=== PATIENT | female | born 1960 | race Hispanic/Latino ===

== ENCOUNTER 2018-05-11 05:30 | Day surgery (SDC) | payer OTHER ==
[~2018-05-11] VITALS: Ht 149.9 cm; Wt 84.6 kg
[2018-05-11] VITALS (7 sets, daily range): BP systolic 102–131; BP diastolic 56–86
[2018-05-11] MEDS ORDERED: SODIUM CHLORIDE 0.9% 1000ML 1,000 ML IV ONE (05:53)
[2018-05-11] MEDS ORDERED: METO-408 PO (06:20)
[2018-05-11] MEDS ORDERED: ASPI-555 PO (06:20)
[2018-05-11] MEDS ORDERED: LOSA1TAB37 PO (06:20)
[2018-05-11] MEDS ORDERED: LOVA40TA2 PO (06:20)
[2018-05-11] MEDS ORDERED: METF-446 PO (06:20)
[2018-05-11] MEDS ORDERED: GLYCOPYRROLATE 0.2 MG/ML 5 ML VIAL ONE ×2 (06:57→07:18)
[2018-05-11] MEDS ORDERED: PROPOFOL 10 MG/ML 20ML VIAL IV ONE ×3 (06:57→07:21)
[2018-05-11] MEDS ORDERED: PHENYLEPHRINE HCL 10 MG/ML 1ML VIAL IV ONE (07:16)
[2018-05-11] MEDS ORDERED: IPRATROPIUM/ALBUTEROL SULFATE 3 ML SOLUTION IH ONE (07:36)
[2018-05-11] MEDS ORDERED: IPRATROPIUM/ALBUTEROL SULFATE 3 ML SOLUTION IH SCH (07:45)
--- NOTE | 2018-05-11 07:51 | NUR ---
DC DC INSTRUCTIONS GIVEN TO PT SPOUSE, INSTRUCTED TO F/U WITH DR. HU, PT AWAKE AND ALERT, AFTER DUONEB PATIENT STATES FELT BETTER. PT'S BEEN HAVING COLD COUGH PRIOR TO PROCEDURE. 02 SAT 95-96% ON ROOM AIR
--- NOTE | 2018-05-11 08:10 | NUR ---
DC PT DC HOME VIA WC,NO DISTRESS NOTED. ACCOMPANIED BY SPOUSE
== END 2018-05-11 08:10 | disposition home or self-care (01) ==
LOC: DAH 05:30 → ENDO 05:30
PROVIDERS: ATTEND Internal Medicine
DX: Z12.11 Encounter for screening for malignant neoplasm of colon (principal); K64.0 First degree hemorrhoids; K57.30 Diverticulosis of large intestine without perforation or abscess without bleeding; B96.81 Helicobacter pylori [H. pylori] as the cause of diseases classified elsewhere; K29.50 Unspecified chronic gastritis without bleeding; E66.01 Morbid (severe) obesity due to excess calories; I10 Essential (primary) hypertension; Z88.8 Allergy status to other drugs, medicaments and biological substances; Z68.37 Body mass index [BMI] 37.0-37.9, adult; Z98.890 Other specified postprocedural states; Z90.710 Acquired absence of both cervix and uterus; Z79.899 Other long term (current) drug therapy; E78.5 Hyperlipidemia, unspecified; J45.909 Unspecified asthma, uncomplicated; E11.9 Type 2 diabetes mellitus without complications; I48.91 Unspecified atrial fibrillation; K76.0 Fatty (change of) liver, not elsewhere classified; Z79.84 Long term (current) use of oral hypoglycemic drugs; K44.9 Diaphragmatic hernia without obstruction or gangrene; K22.8 Other specified diseases of esophagus
CPT/HCPCS: 43239; 45385; 82948 ×2; 93005; 94640; A4606; J2370; J2704 ×3; J3490 ×2; J7030

== ENCOUNTER 2019-12-19 09:00 | Inpatient (IN) | payer OTHER ==
[~2019-12-19] VITALS: Ht 152.4 cm; Wt 86.2 kg
[~2019-12-19 09:00] MED LIST: ASPI-556 PO; LOVA40TA2 PO; METO-408 PO
[2019-12-19 10:31] LABS: APPEARANCE,URINE CLEAR (CLEAR); BILIRUBIN,URINE NEGATIVE (NEGATIVE); COLOR,URINE YELLOW (YELLOW); GLUCOSE, URINE (UA) 250 mg/dL (NEGATIVE); KETONES,URINE NEGATIVE (NEGATIVE); LEUKOCYTE ESTERASE ,URINE NEGATIVE (NEGATIVE); NITRATE,URINE NEGATIVE (NEGATIVE); OCCULT BLOOD,URINE TRACE-INTACT (NEGATIVE); PH,URINE 6.5 (5.0-8.0); PROTEIN,URINE NEGATIVE (NEGATIVE); UROBILINOGEN,URINE 0.2 mg/dL (0.2-1.0)
[2019-12-19 10:37] LABS: BACTERIA,URINE Few /HPF (None Seen); RBC,URINE 0-1 /HPF (0-1); SQUAMOUS EPITHELIAL CELL,UR 0-2 /HPF (0-2); WBC,URINE None Seen /HPF (0-1)
[2019-12-19 10:38] LABS: CREATININE 0.7 mg/dL (0.5-1.5); POTASSIUM 4.1 mmol/L (3.5-5.1)
[2019-12-19 10:41] LABS: INR 0.96 (0.85-1.15); PARTIAL THROMBOPLASTIN TIME 25.9 SEC (26.3-35.5); PROTHROMBIN TIME 10.4 SEC (9.6-11.6)
[2019-12-23 11:00] VITALS: BP 135/84
[2019-12-23] MEDS ORDERED: HYDR12.54 PO (11:27)
[2019-12-23] MEDS ORDERED: OZEMPIC SQ (11:27)
[2019-12-23] MEDS ORDERED: LOSA50TA64 PO (11:27)
[2019-12-23] MEDS ORDERED: SITA100T12 PO (11:27)
--- NOTE | 2019-12-23 15:54 | NUR ---
Abnormal labs Called Dr. Murphy to make him aware of abnormal labs. No further orders given
[2019-12-26] VITALS (21 sets, daily range): BP systolic 111–132; BP diastolic 52–82
--- NOTE | 2019-12-26 09:30 | NUR ---
HOLDING A&O.DENIES PAIN.ALL BELONGINGS GIVEN TO SPOUSE IN LOBBY. SIDE RAILS X2.VS STABLE.
[2019-12-26] MEDS ORDERED: SODIUM CHLORIDE 0.9% 1000ML 1,000 ML IV ONE (10:38)
[2019-12-26] MEDS ORDERED: CELECOXIB 200 MG CAP ONE (10:57)
[2019-12-26] MEDS ORDERED: CEFAZOLIN SODIUM 1 GM VIAL ONE ×2 (10:58→11:18)
[2019-12-26] MEDS ORDERED: KETOROLAC TROMETHAMINE 15MG/ML ONE (10:58)
[2019-12-26] MEDS ORDERED: ACETAMINOPHEN EXTRA STRENGTH 500 MG TABLET ONE (10:58)
[2019-12-26] MEDS ORDERED: METOCLOPRAMIDE 10 MG/2 ML VIAL ONE (10:58)
[2019-12-26] MEDS ORDERED: TRANEXAMIC ACID 1000MG/10ML ONE ×3 (10:59→14:53)
[2019-12-26] MEDS ORDERED: PROPOFOL 10 MG/ML 20ML VIAL IV ONE (11:09)
[2019-12-26] MEDS ORDERED: GLYCOPYRROLATE 1 MG/5 ML SYRINGE ONE (11:09)
[2019-12-26] MEDS ORDERED: DEXAMETHASONE SOD PHOSPHATE 10MG/ML 1ML VIAL ONE (11:09)
[2019-12-26] MEDS ORDERED: LIDOCAINE PF 2% 5ML ABBOJECT ONE (11:09)
[2019-12-26] MEDS ORDERED: MIDAZOLAM HCL 1 MG/ML 2ML VIAL ONE (11:09)
[2019-12-26] MEDS ORDERED: SUCCINYLCHOLINE CHLORIDE 20 MG/ML 10 ML VIAL ONE (11:09)
[2019-12-26] MEDS ORDERED: ONDANSETRON HCL 4 MG/2 ML VIAL ONE (11:10)
[2019-12-26] MEDS ORDERED: NEOSTIGMINE 5MG/5ML SYR IV ONE (11:10)
[2019-12-26] MEDS ORDERED: ROCURONIUM 10MG/1ML SYR 10 MG/ML ML ONE (11:10)
[2019-12-26] MEDS ORDERED: FENTANYL CITRATE PF 50 MCG/1 ML 2ML VIAL ONE (11:10)
[2019-12-26] MEDS ORDERED: ROPIVACAINE 0.5% 5MG/ML 30ML IJ ONE (11:43)
[2019-12-26] MEDS ORDERED: DURAMORPH PF1 MG/ML 10ML AMP IV ONE (11:44)
[2019-12-26] MEDS ORDERED: HETASTARCH IN 0.9 % NACL 500 ML IV ONE (12:26)
[2019-12-26] MEDS ORDERED: EPHEDRINE SULFATE 50 MG/ML AMPULE ONE (12:33)
[2019-12-26] MEDS ORDERED: CEFAZOLIN SODIUM 1 GM VIAL IRRIG ONE (12:48)
[2019-12-26] MEDS ORDERED: KETOROLAC TROMETHAMINE 30MG/ML ONE (14:17)
[2019-12-26] MEDS ORDERED: DiphenhydrAMINE HCL 50 MG/ML VIAL IVP PRN (14:45)
[2019-12-26] MEDS ORDERED: CALCIUM CARBONATE 500 MG TABLET PO PRN (14:45)
[2019-12-26] MEDS ORDERED: POTASSIUM CHLORIDE 20 MEQ ERTAB PO PRN (14:45)
[2019-12-26] MEDS ORDERED: TEMAZEPAM 15 MG CAPSULE PO PRN (14:45)
[2019-12-26] MEDS ORDERED: ONDANSETRON HCL 4 MG/2 ML VIAL IVP PRN (14:45)
[2019-12-26] MEDS ORDERED: TRAMADOL HCL 50 MG TABLET PO PRN (14:45)
[2019-12-26] MEDS: ACETAMINOPHEN EXTRA STRENGTH 500 MG TABLET PO SCH ×2 (14:45→19:55)
[2019-12-26] MEDS: SODIUM CHLORIDE 0.9% 1000ML 1,000 ML IV SCH (14:45)
[2019-12-26] MEDS ORDERED: POTASSIUM CHLORIDE 10% ELIXIR 20 MEQ/15 ML UDCUP PO PRN (14:45)
[2019-12-26] MEDS ORDERED: LIDOCAINE HCL-MPF 1% 2ML VIAL IV PRN (14:45)
[2019-12-26] MEDS ORDERED: FERROUS FUMARATE 324 MG TABLET PO PRN (14:45)
[2019-12-26] MEDS ORDERED: OXYCODONE HCL 5 MG TAB PO PRN (14:45)
[2019-12-26] MEDS ORDERED: POTASSIUM CHLORIDE 20MEQ/100ML 100 ML IV PRN (14:45)
--- NOTE | 2019-12-26 15:45 | NUR ---
REPORT RECEIVED FROM TELMA ELDER (PACU). PATIENT S/P RIGHT TKA BY DR. MEADE. GRETCHEN DRESSING DRY AND INTACT. PATIENT STABLE AT THIS TIME.
--- NOTE | 2019-12-26 15:49 | NUR ---
ROMAINE NOTE/IA UNABLE TO MET WITH PATIENT IN ROOM, NEXT OF KIN CALLED, LALIT ESCALANTE. PER SPOUSE, PATIENT LIVES WITH HIM, INDEPENDENT WITH ADLS, HAS ROLLATOR WALKER, AND FEELS SAFE FOR PATIENT TO DC HOME ONCE STABLE. INFORMED SPOUSE OF DR. MEADE ORDERS FOR HOME HEALTH AND DME, STATES HE WANTS PATIENT TO MAKE THAT DECISION. PATIENT CURRENTLY S/P ORTHOPEDIC SURGERY AND IN PACU RECOVERING. IF NOT TOO DROWSY OR CONFUSED, WILL OBTAIN [facility] FOR HH AND DME FROM PATIENT ONCE IN ROOM. Addendum: 12/26/19 at 1552 by RACHAEL SAPP RN CM Amended: Links added.
--- NOTE | 2019-12-26 16:27 | NUR ---
CM NOTE/HH MET WITH PATIENT AND SPOUSE AT BEDSIDE. PER SPOUSE, WANTS HH AND DME DECISION TO COME FROM HER. PATIENT IS VERY DROWSY AND ALERT WITH TOUCH BUT EASILY FALLS BACK TO SLEEP. CM TO FOLLOW UP FOR HH AND DME DECISION.
[2019-12-26] MEDS: INSULIN HUMULIN R 100 UNIT/ML 3ML SQ SCH ×2 (16:30→20:35)
[2019-12-26] MEDS: CEFAZOLIN SODIUM 1 GM VIAL IVP SCH (19:53)
[2019-12-26] MEDS: FAMOTIDINE 20MG TAB 20 MG TAB PO SCH (19:53)
[2019-12-26] MEDS: PREGABALIN 25 MG CAP PO SCH (19:54)
[2019-12-26] MEDS: CELECOXIB 200 MG CAP PO SCH (19:54)
[2019-12-26] MEDS: ASPIRIN 81MG TAB.CHEW PO SCH (19:54)
[2019-12-26] MEDS: OXYCODONE HCL 5 MG TAB PO PRN ×2 (19:55→23:58)
[2019-12-26] MEDS: METOPROLOL SUCCINATE 50 MG TAB.SR.24H PO SCH (21:00)
[2019-12-26] MEDS: ATORVASTATIN CALCIUM 10 MG TABLET PO SCH (21:00)
[2019-12-27 00:08] VITALS: BP 105/57
[2019-12-27] MEDS: SODIUM CHLORIDE 0.9% 1000ML 1,000 ML IV SCH ×2 (00:56→10:45)
--- NOTE | 2019-12-27 01:00 | NUR ---
ACTIVITY PATIENT ASSISTED TO EDGE OF BED TO DANGLE LEGS PER ORDERS. PATIENT TOLERATED WELL AND WAS THEN ASSISTED BACK TO BED.
[2019-12-27] MEDS: OXYCODONE HCL 5 MG TAB PO PRN ×2 (03:19→20:16)
[2019-12-27] MEDS: CEFAZOLIN SODIUM 1 GM VIAL IVP SCH (03:20)
[2019-12-27 04:12] VITALS: BP 100/54
[2019-12-27] MEDS ORDERED: HYDROMORPHONE HCL 2 MG/ML VIAL IVP PRN (04:45)
[2019-12-27] MEDS ORDERED: NALOXONE HCL 0.4 MG/1 ML ML IVP PRN (04:45)
[2019-12-27] MEDS ORDERED: HYDROMORPHONE PCA 10 MG/50 ML 50 ML IV PRN (04:45)
[2019-12-27] MEDS: INSULIN HUMULIN R 100 UNIT/ML 3ML SQ SCH ×4 (05:19→20:22)
[2019-12-27 05:34] LABS: HEMATOCRIT 30.7 % (36-48); MEAN CORPUSCULAR HEMOGLOBIN 29.8 pg (27.0-33.0); MEAN CORPUSCULAR HGB CONC 32.6 g/dL (32.0-36.0); MEAN CORPUSCULAR VOLUME 91.4 fL (79-99); RED BLOOD CELL COUNT(AUTO) 3.36 MIL/uL (4.00-5.50); RED CELL DISTRIBUTION WIDTH 12.8 % (11.0-15.5)
[2019-12-27 05:44] LABS: CREATININE 0.7 mg/dL (0.5-1.5); POTASSIUM 3.7 mmol/L (3.5-5.1)
[2019-12-27] MEDS: ACETAMINOPHEN EXTRA STRENGTH 500 MG TABLET PO SCH ×3 (05:59→22:36)
[2019-12-27 08:08] VITALS: BP 110/59
[2019-12-27] MEDS: FAMOTIDINE 20MG TAB 20 MG TAB PO SCH ×2 (09:30→20:16)
[2019-12-27] MEDS: LOSARTAN 50 MG TABLET PO SCH (09:31)
[2019-12-27] MEDS: PREGABALIN 25 MG CAP PO SCH ×2 (09:34→20:18)
[2019-12-27] MEDS: ASPIRIN 81MG TAB.CHEW PO SCH ×2 (09:35→20:17)
[2019-12-27] MEDS: LINAGLIPTIN 5 MG TABLET PO SCH (09:36)
[2019-12-27] MEDS: METOPROLOL SUCCINATE 50 MG TAB.SR.24H PO SCH ×2 (09:38→20:17)
[2019-12-27] MEDS: POLYETHYLENE GLYCOL 3350 17 GM POWD.PACK PO SCH (09:46)
[2019-12-27] MEDS: CELECOXIB 200 MG CAP PO SCH ×2 (09:46→20:18)
[2019-12-27] MEDS: HYDROCHLOROTHIAZIDE 25 MG TABLET PO SCH (09:46)
--- NOTE | 2019-12-27 11:03 | NUR ---
1030 spoke to Kina with [employer], She stated she will be sending a reach lift truck driver now to deliver equipment.
[2019-12-27 11:55] VITALS: BP 112/59
--- NOTE | 2019-12-27 14:43 | NUR ---
1406 Spoke to Helen, she stated acceptance to [facility]. I notified RumaRN of acceptance,call report to [phone], also notified her of pending equipment delivery from [facility].
--- NOTE | 2019-12-27 16:46 | NUR ---
WALKED 100 FEET WITH PT. TODAY HAS BEEN COMFORTABLE TODAY, MEDICATED X 1 ONLY. GRETCHEN DRESSING INTACT WITH GREEN LIGHT BLINKING
[2019-12-27 16:59] VITALS: BP 125/64
[2019-12-27 20:08] VITALS: BP 101/50
[2019-12-27] MEDS: ATORVASTATIN CALCIUM 10 MG TABLET PO SCH (20:18)
--- NOTE | 2019-12-27 22:08 | NUR ---
PATIENT RECEIVED IN BED, AAOX3, NO ACUTE DISTRESS. POD #1 RIGHT TKA. GRETCHEN DRESSING IS D/I WITH GREEN LIGHT FLASHING. POC DISCUSSED WITH PATIENT. PT VOICED UNDERSTANDING. CALL SALC[facility]O PLACED WITHIN REACH. WILL CONT TO MONITOR CLOSELY.
[2019-12-28 00:08] VITALS: BP 104/50
[2019-12-28 04:08] VITALS: BP 104/55
[2019-12-28] MEDS: INSULIN HUMULIN R 100 UNIT/ML 3ML SQ SCH ×3 (05:31→16:30)
[2019-12-28] MEDS: ACETAMINOPHEN EXTRA STRENGTH 500 MG TABLET PO SCH ×2 (05:52→15:30)
[2019-12-28 07:40] VITALS: BP 120/57
[2019-12-28] MEDS: LOSARTAN 50 MG TABLET PO SCH (09:03)
[2019-12-28] MEDS: POLYETHYLENE GLYCOL 3350 17 GM POWD.PACK PO SCH (09:03)
[2019-12-28] MEDS: ASPIRIN 81MG TAB.CHEW PO SCH (09:04)
[2019-12-28] MEDS: CELECOXIB 200 MG CAP PO SCH (09:04)
[2019-12-28] MEDS: PREGABALIN 25 MG CAP PO SCH (09:05)
[2019-12-28] MEDS: LINAGLIPTIN 5 MG TABLET PO SCH (09:05)
[2019-12-28] MEDS: FAMOTIDINE 20MG TAB 20 MG TAB PO SCH (09:05)
[2019-12-28] MEDS: HYDROCHLOROTHIAZIDE 25 MG TABLET PO SCH (09:05)
[2019-12-28] MEDS: METOPROLOL SUCCINATE 50 MG TAB.SR.24H PO SCH (09:07)
[2019-12-28 11:23] VITALS: BP 118/68
[2019-12-28] MEDS ORDERED: ASPI-1005 PO (16:13)
[2019-12-28] MEDS ORDERED: HYDR-4457 PO ×2 (16:13→16:19)
[2019-12-28 16:26] VITALS: BP 108/45
--- NOTE | 2019-12-28 17:00 | NUR ---
CALLED [facility], NO ANSWER, WILL TRY AGAIN LATER.
--- NOTE | 2019-12-28 18:25 | NUR ---
DISCHARGE PATIENT GIVEN DISCHARGE INSTRUCTIONS AND EDUCATION ON FOLLOW UP APPOINTMENT, NEW RX (ASA,NORCO), WBAT, GRETCHEN DRESSING CARE AND REMOVAL DATE 01/02/20, AND S/S TO REPORT TO MD. PATIENT VERBALIZED UNDERSTANDING OF ALL EDUCATION GIVEN VIA TEACH BACK. GRETCHEN DRESSING CHANGED USING STERILE TECHNIQUE. NO ABNORMAL S/S NOTED. NEW GRETCHEN DRESSING APPLIED, NEGATIVE PRESSURE ACTIVE, SEAL INTACT. RX VERIFIED, PHARMACY VERIFIED WITH PATIENT. IV DISCONTINUED, CATHETER INTACT. REPORT CALLED TO SORAYA JOSE RN. INSTRUCTION GIVEN ON FOLLOW UP APPOINTMENT, NEW RX (ASA,NORCO), WBAT, GRETCHEN DRESSING CARE AND REMOVAL DATE 01/02/20, AND S/S TO REPORT TO MD. ALL QUESTIONS ANSWERED ACCORDINGLY.
[2019-12-29] MEDS ORDERED: BISACODYL 10 MG SUPP.RECT RC PRN (14:45)
[2020-01-02] MEDS ORDERED: OZEMPIC 0.5 MG SQ SCH (09:00)
== END 2019-12-28 18:45 | disposition home health service (06) | DRG 470 ==
LOC: EDSTATUS 09:00 → DAHIP 12-26 08:29 → 3AH 12-26 15:37
PROVIDERS: ADMIT Orthopaedic Surgery; ATTEND Orthopaedic Surgery
PROC: 0SRC0J9 Replacement of Right Knee Joint with Synthetic Substitute, Cemented, Open Approach (ICD-10-PCS; principal; 2019-12-26 11:42)
DX: M17.11 Unilateral primary osteoarthritis, right knee (principal); D62 Acute posthemorrhagic anemia; Z20.828 Contact with and (suspected) exposure to other viral communicable diseases; E78.00 Pure hypercholesterolemia, unspecified; G89.29 Other chronic pain; I12.9 Hypertensive chronic kidney disease with stage 1 through stage 4 chronic kidney disease, or unspecified chronic kidney disease; N18.9 Chronic kidney disease, unspecified; E11.22 Type 2 diabetes mellitus with diabetic chronic kidney disease; M23.300 Other meniscus derangements, unspecified lateral meniscus, right knee; K76.0 Fatty (change of) liver, not elsewhere classified; Z82.49 Family history of ischemic heart disease and other diseases of the circulatory system; Z83.3 Family history of diabetes mellitus; Z90.710 Acquired absence of both cervix and uterus; Z90.49 Acquired absence of other specified parts of digestive tract; Z88.8 Allergy status to other drugs, medicaments and biological substances
CPT/HCPCS: 36415; 80048; 81001; 82948; 85027; 85610; 85730; 87641; 97039; A4606; G0378; J0330; J0690; J1100; J1170; J1815; J1885; J2001; J2250; J2274; J2405; J2704; J2710; J2765; J2795; J3010; J3490; J7030; J7120; U0003

== ENCOUNTER 2021-01-06 11:22 | Emergency (ER) | payer OTHER ==
[~2021-01-06] VITALS: Ht 149.9 cm; Wt 86.2 kg
[~2021-01-06 11:22] MED LIST changes: +ASPI-1005 PO; +HYDR-4457 PO; +HYDR12.54 PO; +LOSA50TA64 PO; +OZEMPIC SQ; +SITA100T12 PO
[2021-01-06 12:14] VITALS: BP 132/73
== END 2021-01-06 13:49 | disposition home or self-care (01) ==
LOC: EDH 11:22
DX: M76.892 Other specified enthesopathies of left lower limb, excluding foot (principal); E11.9 Type 2 diabetes mellitus without complications; E78.00 Pure hypercholesterolemia, unspecified; I10 Essential (primary) hypertension; Z79.82 Long term (current) use of aspirin; Z79.84 Long term (current) use of oral hypoglycemic drugs; Z79.899 Other long term (current) drug therapy
CPT/HCPCS: 73562

== ENCOUNTER 2023-08-19 09:27 | Day surgery (SDC) | payer OTHER ==
[~2023-08-19] VITALS: Ht 152.4 cm; Wt 82.6 kg
[2023-08-19] VITALS (12 sets, daily range): BP systolic 94–145; BP diastolic 49–72; PULSE 59–78; RESP 14–18
[~2023-08-19 09:27] MED LIST changes: -ASPI-1005 PO; +ASPI-1197 PO; -ASPI-556 PO; -HYDR-4457 PO; -HYDR12.54 PO; -LOVA40TA2 PO; -OZEMPIC SQ; +SEMA0.258 SQ; -SITA100T12 PO
[2023-08-19] MEDS: 0.9%NACL 1000ML 1,000 ML IV ONE (11:04)
== END 2023-08-19 15:05 | disposition home or self-care (01) ==
LOC: ENDO 09:27 → DAH 09:27 → ENDO 15:05
PROVIDERS: ATTEND Internal Medicine
DX: Z12.11 Encounter for screening for malignant neoplasm of colon (principal); D12.2 Benign neoplasm of ascending colon; K64.0 First degree hemorrhoids; K57.30 Diverticulosis of large intestine without perforation or abscess without bleeding; K29.70 Gastritis, unspecified, without bleeding; K21.9 Gastro-esophageal reflux disease without esophagitis; K44.9 Diaphragmatic hernia without obstruction or gangrene; K25.9 Gastric ulcer, unspecified as acute or chronic, without hemorrhage or perforation; I12.9 Hypertensive chronic kidney disease with stage 1 through stage 4 chronic kidney disease, or unspecified chronic kidney disease; E11.22 Type 2 diabetes mellitus with diabetic chronic kidney disease; N18.2 Chronic kidney disease, stage 2 (mild); E11.65 Type 2 diabetes mellitus with hyperglycemia; E78.5 Hyperlipidemia, unspecified; J45.909 Unspecified asthma, uncomplicated; I25.10 Atherosclerotic heart disease of native coronary artery without angina pectoris; K76.0 Fatty (change of) liver, not elsewhere classified; I48.91 Unspecified atrial fibrillation; E66.9 Obesity, unspecified; Z68.35 Body mass index [BMI] 35.0-35.9, adult; Z86.010 Personal history of colon polyps; Z88.8 Allergy status to other drugs, medicaments and biological substances; Z79.82 Long term (current) use of aspirin; Z79.899 Other long term (current) drug therapy; Z90.49 Acquired absence of other specified parts of digestive tract; Z90.710 Acquired absence of both cervix and uterus; Z98.891 History of uterine scar from previous surgery; Z98.890 Other specified postprocedural states
CPT/HCPCS: 82948 ×2; 43239; 45380; J7030 ×2; A4620; A4215; A4223; A7002; A4222; A4221; A4663; A4606